=== PATIENT | male | born 1980 | race Caucasian/White ===

== ENCOUNTER 2017-04-15 15:12 | Emergency (ER) | payer BC ==
--- NOTE | 2017-04-22 17:58 | ER ---
ADMIT: 04/15/2017 RM/LOC: ER [facility] MR#: [id number] [facility] [address] [place] [id number] CHELSEA TERESAMariza Porter [address] [place] [id number] Emergency Room Report SEX: M AGE: 36 : 1980 DATE: 04/15/2017 ADDENDUM: A 36-year-old white male coming in with spontaneous dislocation of his left shoulder. 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 He has not followed up with the Ortho, so he keeps this dislocating. This was reduced under moderate sedation with a total of 20 of etomidate without problem. Once he was sedated, his shoulder could easily fall back into place. We put him in a shoulder immobilizer. X-ray shows good reduction, no postop fracture etc. His dislocation was such that he was obvious on physical exam. This time, I instructed to see orthopedic surgeon within in a week, will be Dr. Jaeger or whoever he decides he is going to see, but I gave him a significant suggestion and that this is just going to continue to fall out unless he gets it fixed. CONDITION ON DISCHARGE: Improved. Sang Espinosa MD/ ortega JOB #: [id number] CC: Sang Espinosa MD, Attending Physician Kwame Jaeger MD, Family Physician
== END 2017-04-15 16:14 | disposition home or self-care (01) ==
LOC: ER 15:12
PROC: 0RSKXZZ Reposition Left Shoulder Joint, External Approach (ICD-10-PCS; principal; 2017-04-15)
DX: S43.005A Unspecified dislocation of left shoulder joint, initial encounter (principal); F17.200 Nicotine dependence, unspecified, uncomplicated; X50.9XXA Other and unspecified overexertion or strenuous movements or postures, initial encounter; Y92.009 Unspecified place in unspecified non-institutional (private) residence as the place of occurrence of the external cause